=== PATIENT | female | born 1985 | race Caucasian/White ===

== ENCOUNTER 2019-01-02 23:58 | Emergency (ER) | payer OTHER ==
[~2019-01-02] VITALS: Ht 144.8 cm; Wt 64.0 kg
[2019-01-03] MEDS ORDERED: IBUPROFEN 600MG TABLET PO STA (02:59)
[2019-01-03 03:44] LABS: CHLORIDE 105 mEq/L (98-107)
[2019-01-03 03:50] LABS: BASOPHILS % 0.3 % (0.0-2.0); EOSINOPHILS % 0.9 % (0.0-5.0); HEMATOCRIT. 36.2 % (36.0-48.0); HEMOGLOBIN. 12.2 g/dL (12.0-16.0); LYMPHOCYTES % 21.1 % (20.0-50.0); MEAN CORPUSCULAR HEMOGLOBIN 26.6 pg (28.0-32.0); MEAN PLATELET VOLUME 8.3 fl (7.4-10.4); MONOCYTES % 7.1 % (2.0-8.0); NEUTROPHILS % 70.6 % (40.0-76.0); PLATELET 322 x1000/uL (130-400); RED BLOOD CELL COUNT 4.58 mill/uL (4.2-5.4); RED CELL DISTRIBUTION WIDTH 14.6 % (11.6-14.6)
[2019-01-03 04:00] VITALS: BP 125/65
== END 2019-01-03 04:30 | disposition home or self-care (01) ==
LOC: ER 01-03 03:17
DX: R07.89 Other chest pain (principal)
CPT/HCPCS: 36415; 80053; 85025; 85379; 93005; 99284; Z7610